=== PATIENT | female | born 1995 | race Two or more races ===

== ENCOUNTER → 2017-06-02 | Outpatient (CLI) | payer SELFPAY ==
[2017-06-02 13:02] LABS: CHLAM PCR NOT DETECTED (NOT DETECT)
== END ==
LOC: LAB 11:03
PROVIDERS: ATTEND Nurse Practitioner Acute Care
DX: R30.0 Dysuria (principal); Z71.1 Person with feared health complaint in whom no diagnosis is made
CPT/HCPCS: 87086; 87088; 87186; 87210; 87491; 87591

== ENCOUNTER 2018-09-12 17:19 | Observation (INO) | payer MEDICAID, OTHER ==
--- NOTE | 2018-09-12 18:31 | ER Document Report ---
ED Medical Screen (RME) - General Chief Complaint: Hemorrhoids Stated Complaint: SKIN PROBLEM Time Seen by Provider: 09/12/18 18:20 Mode of Arrival: Ambulatory Information source: Patient Notes: This is a 23-year-old female with a history of hemorrhoids who presents to the emergency room with complaints of a hemorrhoid. TRAVEL OUTSIDE OF THE [place] IN LAST 30 DAYS: No - Related Data Allergies/Adverse Reactions: hydromorphone [From Dilaudid] Allergy (Verified 07/18/16 14:01) Past Medical History - Past Medical History Cardiac Medical History: Denies: Hx Pulmonary Embolism Pulmonary Medical History: Reports: Hx Asthma Denies: Hx Sleep Apnea, Hx Tuberculosis Renal/ Medical History: Denies: Hx Peritoneal Dialysis Past Surgical History: Reports: Hx Section Physical Exam - Vital signs Vitals: Temp Pulse Resp BP Pulse Ox 97.9 F 70 14 132/70 H 98 09/12/18 17:31 09/12/18 17:31 09/12/18 17:31 09/12/18 17:31 09/12/18 17:31 Course - Vital Signs Vital signs: Temp Pulse Resp BP Pulse Ox 97.9 F 70 14 132/70 H 98 09/12/18 17:31 09/12/18 17:31 09/12/18 17:31 09/12/18 17:31 09/12/18 17:31
--- NOTE | 2018-09-12 20:58 | ER Document Report ---
ED General - General Chief Complaint: Hemorrhoids Stated Complaint: SKIN PROBLEM Time Seen by Provider: 09/12/18 18:20 Mode of Arrival: Ambulatory Notes: Patient is a 23-year-old female who presents to the emergency department with chief complaint of hemorrhoid. She states she has a history of hemorrhoids and has been seen at the [facility] for them. She reports that this time her hemorrhoid popped out yesterday she has been doing sitz bath and applying Anusol to the area with no relief. She denies any fevers. TRAVEL OUTSIDE OF THE [place] IN LAST 30 DAYS: No - Related Data Allergies/Adverse Reactions: hydromorphone [From Dilaudid] Allergy (Verified 07/18/16 14:01) Past Medical History - General Information source: Patient - Social History Smoking Status: Never Smoker Family History: None Patient has suicidal ideation: No Patient has homicidal ideation: No - Past Medical History Cardiac Medical History: Denies: Hx Pulmonary Embolism Pulmonary Medical History: Reports: Hx Asthma Denies: Hx Sleep Apnea, Hx Tuberculosis Renal/ Medical History: Denies: Hx Peritoneal Dialysis Past Surgical History: Reports: Hx Section - Immunizations Immunizations up to date: Yes Review of Systems - Review of Systems Constitutional: No symptoms reported EENT: No symptoms reported Cardiovascular: No symptoms reported Respiratory: No symptoms reported Gastrointestinal: No symptoms reported Genitourinary: No symptoms reported Female Genitourinary: No symptoms reported Musculoskeletal: No symptoms reported Skin: Other - Hemorrhoid Hematologic/Lymphatic: No symptoms reported Neurological/Psychological: No symptoms reported Physical Exam - Vital signs Vitals: Temp Pulse Resp BP Pulse Ox 97.9 F 70 14 132/70 H 98 09/12/18 17:31 09/12/18 17:31 09/12/18 17:31 09/12/18 17:31 09/12/18 17:31 - Notes Notes: PHYSICAL EXAMINATION: GENERAL: Well-appearing, well-nourished and in no acute distress. HEAD: Atraumatic, normocephalic. EYES: Pupils equal round and reactive to light, extraocular movements intact, conjunctiva are normal. ENT: Nares patent, oropharynx clear without exudates. Moist mucous membranes. NECK: Normal range of motion, supple without lymphadenopathy LUNGS: Breath sounds clear to auscultation bilaterally and equal. No wheezes rales or rhonchi. HEART: Regular rate and rhythm without murmurs ABDOMEN: Soft, nontender, nondistended abdomen. No guarding, no rebound. No masses appreciated. GI: Large tender thrombosed hemmorhoid Female : No CVa tenderness Musculoskeletal: Normal range of motion, no pitting or edema. No cyanosis. NEUROLOGICAL: Cranial nerves grossly intact. Normal speech, normal gait. Normal sensory, motor exams PSYCH: Normal mood, normal affect. SKIN: Warm, Dry, normal turgor, no rashes or lesions noted. Course - Re-evaluation Re-evalutation: 09/12/18 20:40 Dr. Guardado, general surgeon to bedside. He will admit the patient for observation and perform a hemorrhoidectomy in the morning. - Vital Signs Vital signs: Temp Pulse Resp BP Pulse Ox 97.9 F 70 14 132/70 H 98 09/12/18 17:31 09/12/18 17:31 09/12/18 17:31 09/12/18 17:31 09/12/18 17:31 Discharge - Discharge Clinical Impression: Acute hemorrhoid Condition: Stable Disposition: ADMITTED OBSERVATION Admitting Provider: Surgicalist Unit Admitted: Medical Floor
[2018-09-12] MEDS ORDERED: GLUCAGON,HUMAN RECOMB 1 MG INJ SUBCUT PRN (21:09)
[2018-09-12] MEDS ORDERED: DEXTROSE 5%-LACTATED RINGERS 1,000 ML IV PRN (21:09)
[2018-09-12] MEDS ORDERED: DEXTROSE 50%-WATER 25 GM/50 ML DISP.SYRIN IV PRN ×2 (21:09)
[2018-09-12] MEDS ORDERED: DEXTROSE 40% GEL 15 GM TUBE PO PRN ×2 (21:09)
[2018-09-12] MEDS: MORPHINE SULFATE 10 MG/ML INJ IV PRN (23:34)
[2018-09-12] MEDS: ONDANSETRON HCL INJ/PF 4 MG/2 ML SDV IV PRN (23:35)
--- NOTE | 2018-09-13 05:57 | PDOC H&P ---
History of Present Illness Admission Date/PCP: 09/12/18 21:03 History of Present Illness: BONY COE is a 23 year old female with a 1-2-day history of perirectal pain and swelling. The patient reports that she has a history of hemorrhoids with . Patient has a chronic anal skin tag, but it has become inflamed and severely painful. The patient has been using hydrocortisone cream with no effect. The patient rates her pain as 9 out of 10. Her pain is sharp and stabbing. It does not radiate. Palpation and pressure make her pain worse. Nothing makes it better. The patient denies chest pain, shortness of breath, fevers, chills, nausea, vomiting, headache, dizziness, orthostasis, malaise, or fatigue. The patient does report intermittent constipation and rectal pain. Past Medical History Cardiac Medical History: Denies: Pulmonary Embolism Pulmonary Medical History: Reports: Asthma Denies: Sleep Apnea, Tuberculosis Past Surgical History Past Surgical History: Reports: Section Social History Smoking Status: Never Smoker Frequency of Alcohol Use: None Hx Recreational Drug Use: No Family History Family History: None Parental Family History Reviewed: Yes Children Family History Reviewed: Yes Sibling(s) Family History Reviewed.: Yes Medication/Allergy Home Medications: No Home Medications 09/12/18 Allergies/Adverse Reactions: hydromorphone [From Dilaudid] Allergy (Verified 07/18/16 14:01) Review of Systems Constitutional: ABSENT: anorexia, chills, fatigue, fever(s), weakness Eyes: ABSENT: visual disturbances Ears: ABSENT: hearing changes Nose, Mouth, and Throat: ABSENT: sore throat Cardiovascular: ABSENT: chest pain, palpitations Respiratory: ABSENT: cough, dyspnea Gastrointestinal: PRESENT: constipation, other - Rectal pain and hemorrhoids. ABSENT: abdominal pain, bloating Genitourinary: ABSENT: dysuria Musculoskeletal: ABSENT: back pain Integumentary: ABSENT: pruritus, rash Neurological: ABSENT: confusion, convulsions, dizziness Psychiatric: ABSENT: anxiety, depression Endocrine: ABSENT: cold intolerance, heat intolerance Hematologic/Lymphatic: ABSENT: easy bleeding, easy bruising Physical Exam Vital Signs: Temp Pulse Resp BP Pulse Ox 97.9 F 70 14 132/70 H 98 09/12/18 17:31 09/12/18 17:31 09/12/18 17:31 09/12/18 17:31 09/12/18 17:31 Intake & Output 09/11/18 09/12/18 09/13/18 06:59 06:59 06:59 Weight 82.2 kg General appearance: PRESENT: no acute distress, cooperative Head exam: PRESENT: atraumatic, normocephalic Eye exam: PRESENT: EOMI, PERRLA. ABSENT: scleral icterus Mouth exam: PRESENT: moist, neck supple Teeth exam: ABSENT: poor dentation Neck exam: ABSENT: meningismus, tenderness, thyromegaly, tracheal deviation Respiratory exam: PRESENT: clear to auscultation vitor, unlabored. ABSENT: chest wall tenderness, tachypnea, wheezes Cardiovascular exam: PRESENT: RRR Pulses: PRESENT: normal radial pulses Vascular exam: PRESENT: normal capillary refill. ABSENT: pallor GI/Abdominal exam: PRESENT: soft. ABSENT: distended, tenderness Rectal exam: PRESENT: hemorrhoids - Anterior. Internal and external., normal rectal tone Extremities exam: ABSENT: clubbing Musculoskeletal exam: ABSENT: deformity Neurological exam: PRESENT: alert, awake, oriented to person, oriented to place, oriented to time, oriented to situation, CN II-XII grossly intact Psychiatric exam: ABSENT: agitated, anxious, depressed Focused psych exam: ABSENT: delusional Skin exam: ABSENT: cyanosis, erythema, jaundice Assessment & Plan - Diagnosis (1) Internal and external thrombosed hemorrhoids Is this a current diagnosis for this admission?: Yes - Plan Summary Plan Summary: This is a 23-year-old female with enlarged, thrombosed internal and external hemorrhoids. The patient has a small area of developing necrosis. I have given the patient 2 options. She can either be admitted and have the hemorrhoids a ddressed immediately, or she may go home with pain medication and have her hemorrhoids addressed in several days as an outpatient. The patient is in excruciating pain, and requests intervention as soon as possible. I will admit the patient, initiate pain control, and plan for surgery tomorrow. Risks/benefits discussed, informed consent obtained, and all questions answered.
[2018-09-13] MEDS: MORPHINE SULFATE 10 MG/ML INJ IV PRN (06:08)
[2018-09-13] MEDS ORDERED: LIDOCAINE 1%/EPINEPHRINE INJ 20 ML VIAL ONE (07:53)
[2018-09-13] MEDS ORDERED: MIDAZOLAM 2 MG/2 ML INJ ONE (08:01)
[2018-09-13] MEDS ORDERED: FENTANYL CITRATE INJ/PF 100 MCG/2 ML AMPUL ONE (08:01)
[2018-09-13] MEDS ORDERED: PROPOFOL INJ 200 MG/20 ML VIAL IV ONE (08:01)
[2018-09-13] MEDS ORDERED: BUPIVACAINE HCL/DEX-WATER/PF 15 MG/2 ML AMPULE ONE (08:02)
[2018-09-13] MEDS ORDERED: CEFAZOLIN INJ 1 GM VIAL ONE (09:09)
[2018-09-13] MEDS ORDERED: FENTANYL CITRATE INJ/PF 100 MCG/2 ML AMPUL IV PRN ×3 (09:58)
[2018-09-13] MEDS ORDERED: PROMETHAZINE HCL INJ 25 MG/1 ML VIAL IV PRN (09:58)
--- NOTE | 2018-09-13 10:38 | OPERATIVE REPORT E ---
Operative Report NAME: BONY COE : 1995 AGE: 23Y DATE OF SURGERY: 09/13/2018 ROOM: 318 PREOPERATIVE DIAGNOSIS: Chronic hemorrhoids with acute necrosis of anterior hemorrhoid. POSTOPERATIVE DIAGNOSIS: Chronic hemorrhoids with acute necrosis of anterior hemorrhoid. PROCEDURE: Internal and external hemorrhoidectomy. SURGEON: AMANDA MIGUEL M.D. ANESTHESIA: Spinal. INDICATIONS: This is a 23-year-old female who complained of hemorrhoids since after her last 2 years ago. She has been lifting weights in the gym and noted to have more pains in the hemorrhoidal area, worse 2 days ago. She was noted to have a necrotic area in the anterior part of the hemorrhoid and subsequently admitted. DESCRIPTION OF PROCEDURE: After adequate spinal anesthesia, the patient was placed in lithotomy position and the rectal exam was performed. No evidence of further proximal lesions were palpated. She does have an anterior hemorrhoid with necrosis. She has another posterior hemorrhoid and a left lateral smaller hemorrhoid. There is a little internal hemorrhoid component on the anterior aspect. The rectum was dilated to about 3 fingers. Next, the anterior hemorrhoid with the necrotic area was then pulled with an Allis clamp and subsequently divided serially with the use of LigaSure. The hemorrhoid was completely removed and hemostasis noted. Next the smaller hemorrhoid on the posterior side was then grasped with an Allis clamp and subsequently divided close to the mucocutaneus junctionwith the use of the LigaSure. Again, hemostasis was noted. A smaller hemorrhoid on the left lateral area was subsequently grasped with the Allis clamp and subsequently divided with use of the LigaSure again close to the mucocutaneus junction. This was a relatively small hemorrhoid. No evidence of bleeding noted and no evidence of stricture after completion of the procedure. Bacitracin was placed around the hemorrhoidectomy procedure sites and the Surgifoam was placed in the rectal area as a packing. The patient did have lidocaine with epinephrine injected around the rectal area prior to the procedure. The patient tolerated the procedure well. Estimated blood loss was very minimal, less than 2 mL. The patient was then brought to the recovery room in satisfactory condition. DICTATING PHYSICIAN: AMANDA MIGUEL M.D. [id number] PHY#: [id number] ID: [id number] JOB#: [id number] ACCT: [id number] cc:AMANDA MIGUEL M.D. > [place]
[2018-09-13] MEDS ORDERED: MORPHINE SULFATE 10 MG/ML INJ IV PRN (11:00)
[2018-09-13] MEDS: NORMAL SALINE 1000 ML 1,000 ML IV PRN (12:57)
[2018-09-13] MEDS: ONDANSETRON HCL INJ/PF 4 MG/2 ML SDV IV PRN (17:00)
[2018-09-13] MEDS: OXYCODONE-ACETAMINOPHEN 5-325 MG TABLET PO PRN (18:01)
[2018-09-13] MEDS: CEFAZOLIN 1 GM/D5W RTU 1 GM/50 ML RTUPB IV SCH (18:04)
[2018-09-13] MEDS ORDERED: MAGNESIUM HYDROXIDE SUSP 30 ML UDCUP PO ONE (19:15)
[2018-09-14] MEDS: OXYCODONE-ACETAMINOPHEN 5-325 MG TABLET PO PRN (00:33)
[2018-09-14] MEDS: NORMAL SALINE 1000 ML 1,000 ML IV PRN (00:35)
[2018-09-14] MEDS: CEFAZOLIN 1 GM/D5W RTU 1 GM/50 ML RTUPB IV SCH (02:09)
[2018-09-14] MEDS ORDERED: KETOROLAC TROMETHAMINE INJ/PF 30 MG/1 ML SDV IV SCH (09:30)
[2018-09-14] MEDS ORDERED: KETOROLAC TROMETHAMINE INJ/PF 30 MG/1 ML SDV IV ONE (10:15)
[2018-09-14 11:20] VITALS: BP 107/64
== END 2018-09-14 11:39 | disposition home or self-care (01) ==
LOC: ER 17:19 → EH 21:03 → 3W 09-13 01:05 → 2S 09-13 20:24
PROVIDERS: ADMIT Surgery; ATTEND Surgery
PROC: 06BY0ZC Excision of Hemorrhoidal Plexus, Open Approach (ICD-10-PCS; principal; 2018-09-13 08:30)
DX: K64.8 Other hemorrhoids (principal); K64.5 Perianal venous thrombosis; K59.09 Other constipation
CPT/HCPCS: 99284; 36415; 84703; 88304 ×2; 46260; J2250; J0690 ×3; J3010; J3490 ×2; J1885; J2270 ×2; J2405 ×2; J7030 ×2; J2704; 902